=== PATIENT | female | born 1970 ===

== ENCOUNTER 2023-06-27 07:50 | Outpatient (REF) | payer OTHER, SELFPAY | END 2023-06-27 07:51 | disposition home or self-care (01) | LOC: HO.SH 07:50 | PROVIDERS: PCP Internal Medicine; Visit Provider Internal Medicine | DX: Z01.118 Encounter for examination of ears and hearing with other abnormal findings (principal); H91.93 Unspecified hearing loss, bilateral | CPT/HCPCS: 92557 ==